=== PATIENT | male | born 1970 | race Caucasian/White ===

== ENCOUNTER 2020-08-15 10:45 | Inpatient (IN) | payer MEDICARE, MEDICAID ==
[~2020-08-15] VITALS: Ht 182.9 cm; Wt 115.0 kg
[2020-08-15 11:35] LABS: BASOPHILS % (AUTO) 0.5 % (0.0-2.0); EOSINOPHILS % (AUTO) 1.4 % (1.0-6.0); HEMATOCRIT 45.5 % (41-53); HEMOGLOBIN 16.1 g/dL (13.5-17.5); LYMPHOCYTES # (AUTO) 2.1 K/uL (1.0-4.8); LYMPHOCYTES % (AUTO) 24.8 % (22.0-44.0); MEAN CORPUSCULAR HEMOGLOBIN 32.6 pg (26.0-34.0); MEAN CORPUSCULAR HGB CONC 35.4 G/dL (31.0-37.0); MEAN CORPUSCULAR VOLUME 92 fL (80-100); MONOCYTES # (AUTO) 0.6 K/uL (0.1-1.0); MONOCYTES % (AUTO) 6.8 % (2.0-9.0); NEUTROPHILS # (AUTO) 5.5 K/uL (1.8-7.7); NEUTROPHILS % (AUTO) 66.5 % (40.0-70.0); PLATELET COUNT (AUTO) 183 K/uL (150-450); RED BLOOD CELL COUNT(AUTO) 4.94 MIL/uL (4.50-5.90); RED CELL DISTRIBUTION WIDTH 13.4 % (11.5-14.5)
[2020-08-15 11:42] LABS: AMPHET/METH SCREEN,URINE POSITIVE (NEGATIVE); BARBITURATE SCREEN, URINE NEGATIVE (NEGATIVE); BENZODIAZEPINES SCREEN,URINE NEGATIVE (NEGATIVE); CANNABINOID SCREEN,URINE NEGATIVE (NEGATIVE); COCAINE SCREEN,URINE NEGATIVE (NEGATIVE); METHADONE SCREEN, URINE NEGATIVE (NEGATIVE); OPIATE SCREEN,URINE NEGATIVE (NEGATIVE)
[2020-08-15 11:47] LABS: PHENCYCLIDINE SCREEN,URINE NEGATIVE (NEGATIVE)
[2020-08-15 11:51] LABS: ANION GAP 10 mmol/L (8-16); CALCIUM, TOTAL 8.7 mg/dL (8.8-10.5); CARBON DIOXIDE 26 mmol/L (22-29); CHLORIDE 105 mmol/L (98-107); CREATININE 1.54 mg/dL (0.60-1.30); GLOMERULAR FILTR. RATE CALC 48 mL/min (>60); GLUCOSE,RANDOM 112 mg/dL (70-110); POTASSIUM 3.2 mmol/L (3.5-5.1); SODIUM SERUM 141 mmol/L (136-145); UREA NITROGEN, BLOOD 21 mg/dL (7-18)
[2020-08-15 12:05] LABS: ALANINE AMINOTRANSFERASE 43 U/L (12-78); ALBUMIN 3.9 g/dL (3.4-5.0); ALKALINE PHOSPHATASE 92 U/L (46-116); ASPARTATE AMINOTRANSFERASE 22 U/L (15-37); BILIRUBIN,TOTAL 0.7 mg/dL (0.1-1.0); TOTAL PROTEIN, SERUM 7.1 g/dL (6.4-8.2)
[2020-08-15 12:37] LABS: COVID AG,FIA SOURCE NASOPHARYNGEAL
[2020-08-15] MEDS ORDERED: POTASSIUM CHLORIDE 20 MEQ ER TABLET PO ONE (14:00)
[2020-08-15] MEDS ORDERED: NICOTINE 21 MG/24 HOUR PATCH TD ONE (14:15)
[2020-08-15] MEDS ORDERED: TUBERCULIN, PURIFIED PROTEIN DERIVATIVE 5 TU/0.1 ML SYRINGE ID ONE (15:30)
[2020-08-15] MEDS ORDERED: LORazepam 2 MG TABLET PO PRN (15:30)
[2020-08-15] MEDS ORDERED: LOPERAMIDE HCL 2 MG CAPSULE PO PRN (15:30)
[2020-08-15] MEDS ORDERED: OLANZapine 5 MG RAPDIS TABLET PO PRN (15:30)
[2020-08-15] MEDS ORDERED: MAGNESIUM HYDROXIDE SUSPENSION 30 ML UDCUP PO PRN (15:30)
[2020-08-15] MEDS ORDERED: GuaiFENesin/D-METHORPHAN [SUGAR-FREE] 200-20MG/10 ML SYRUP UDCUP PO PRN (15:30)
[2020-08-15] MEDS ORDERED: HydrOXYzine PAMOATE 50 MG CAPSULE PO PRN (15:30)
[2020-08-15] MEDS ORDERED: ACETAMINOPHEN 325 MG TABLET PO PRN (15:30)
[2020-08-15] MEDS ORDERED: PROMETHAZINE HCL 25 MG TABLET PO PRN (15:30)
[2020-08-15] MEDS ORDERED: ZOLPIDEM TARTRATE 10 MG TABLET PO PRN (15:30)
[2020-08-15] MEDS ORDERED: MAG HYDROX/AL HYDROX/SIMETH ES 30 ML SUSPENSION UDCUP PO PRN (15:30)
[2020-08-15] MEDS: OLANZapine 5 MG RAPDIS TABLET PO SCH (21:17)
[2020-08-15] MEDS: THIAMINE 100 MG TABLET PO SCH (21:17)
[2020-08-15] MEDS: DIVALPROEX SODIUM 500 MG ER TABLET PO SCH (21:17)
[2020-08-15 21:29] VITALS: BP 166/90
[2020-08-15] MEDS ORDERED: INFLUENZA VIRUS VACCINE QVS 2020-21 (6MO+)/PF 60 MCG/0.5 ML SYRINGE IM ONE (22:00)
[2020-08-16 00:54] VITALS: BP 139/89
[2020-08-16 08:11] VITALS: BP 121/72
[2020-08-16 08:16] LABS: HEMOGLOBIN A1C 5.6 % (3.8-5.6)
[2020-08-16 08:30] LABS: CHOL/HDL RATIO 5.9 (4.2-7.3); FREE T4 (FREE THYROXINE) 1.22 ng/dL (0.76-1.46); THYROID STIMULATING HORMONE 1.06 uIU/mL (0.36-3.74)
[2020-08-16] MEDS: FOLIC ACID 1 MG TABLET PO SCH (09:00)
[2020-08-16] MEDS: NALTREXONE HCL 50 MG TABLET PO SCH (09:00)
[2020-08-16] MEDS: THIAMINE 100 MG TABLET PO SCH ×2 (09:00→16:37)
[2020-08-16] MEDS: OMEGA-3/DHA/EPA/FISH OIL 1,000 MG CAPSULE PO SCH (09:01)
[2020-08-16] MEDS: FLUoxetine HCL 20 MG CAPSULE PO SCH (09:01)
[2020-08-16] MEDS: NICOTINE 21 MG/24 HOUR PATCH TD SCH (09:01)
[2020-08-16] MEDS: MULTIVITAMINS WITH MINERALS, THERAPEUTIC TABLET PO SCH (09:01)
[2020-08-16] MEDS: ASPIRIN 81 MG CHEWABLE TABLET PO SCH (09:01)
[2020-08-16 16:09] VITALS: BP 138/80
[2020-08-16] MEDS ORDERED: POTASSIUM CHLORIDE 20 MEQ ER TABLET PO ONE (18:30)
[2020-08-16] MEDS: OLANZapine 5 MG RAPDIS TABLET PO SCH (20:41)
[2020-08-16] MEDS: DIVALPROEX SODIUM 500 MG ER TABLET PO SCH (20:41)
[2020-08-17 05:28] VITALS: BP 128/89
[2020-08-17 08:28] VITALS: BP 130/70
[2020-08-17] MEDS: NICOTINE 21 MG/24 HOUR PATCH TD SCH (08:28)
[2020-08-17] MEDS: THIAMINE 100 MG TABLET PO SCH ×2 (08:28→17:09)
[2020-08-17] MEDS: FLUoxetine HCL 20 MG CAPSULE PO SCH (08:28)
[2020-08-17] MEDS: OMEGA-3/DHA/EPA/FISH OIL 1,000 MG CAPSULE PO SCH (08:28)
[2020-08-17] MEDS: MULTIVITAMINS WITH MINERALS, THERAPEUTIC TABLET PO SCH (08:28)
[2020-08-17] MEDS: FOLIC ACID 1 MG TABLET PO SCH (08:28)
[2020-08-17] MEDS: NALTREXONE HCL 50 MG TABLET PO SCH (08:28)
[2020-08-17] MEDS: ASPIRIN 81 MG CHEWABLE TABLET PO SCH (08:28)
[2020-08-17 08:33] LABS: ANION GAP 7 mmol/L (8-16); CALCIUM, TOTAL 8.4 mg/dL (8.8-10.5); CARBON DIOXIDE 27 mmol/L (22-29); CHLORIDE 107 mmol/L (98-107); GLOMERULAR FILTR. RATE CALC > 60 mL/min (>60); GLUCOSE,RANDOM 91 mg/dL (70-110); POTASSIUM 4.1 mmol/L (3.5-5.1); SODIUM SERUM 141 mmol/L (136-145); UREA NITROGEN, BLOOD 11 mg/dL (7-18); URIC ACID 8.4 mg/dL (2.6-7.2); VALPROIC ACID 52 mcg/mL (50-100)
[2020-08-17] MEDS ORDERED: OLAN5TAB30 PO (14:57)
[2020-08-17] MEDS ORDERED: DIVA-80 PO (14:57)
[2020-08-17] MEDS ORDERED: NALT50TA PO (14:57)
[2020-08-17] MEDS ORDERED: FLUO-191 PO (14:57)
[2020-08-17] MEDS ORDERED: OMEG-135 PO (14:57)
[2020-08-17 16:17] VITALS: BP 140/81
[2020-08-17] MEDS: DIVALPROEX SODIUM 500 MG ER TABLET PO SCH (20:35)
[2020-08-17] MEDS: OLANZapine 5 MG RAPDIS TABLET PO SCH (20:35)
[2020-08-18 05:04] VITALS: BP 137/95
[2020-08-18 08:23] VITALS: BP 142/89
[2020-08-18] MEDS ORDERED: ASPI81TA49 PO (08:23)
[2020-08-18] MEDS: OMEGA-3/DHA/EPA/FISH OIL 1,000 MG CAPSULE PO SCH (08:27)
[2020-08-18] MEDS: FLUoxetine HCL 20 MG CAPSULE PO SCH (08:27)
[2020-08-18] MEDS: NALTREXONE HCL 50 MG TABLET PO SCH (08:27)
[2020-08-18] MEDS: FOLIC ACID 1 MG TABLET PO SCH (08:27)
[2020-08-18] MEDS: MULTIVITAMINS WITH MINERALS, THERAPEUTIC TABLET PO SCH (08:27)
[2020-08-18] MEDS: NICOTINE 21 MG/24 HOUR PATCH TD SCH (08:28)
[2020-08-18] MEDS: THIAMINE 100 MG TABLET PO SCH (08:28)
[2020-08-18] MEDS ORDERED: ATOR10TA69 PO ×2 (11:18→11:24)
== END 2020-08-18 14:43 | disposition home or self-care (01) | DRG 885 ==
LOC: EMS 10:47 → B2X 15:21
PROVIDERS: ADMIT Psychiatry & Neurology Psychiatry; ATTEND Psychiatry & Neurology Psychiatry
DX: F31.30 Bipolar disorder, current episode depressed, mild or moderate severity, unspecified (principal); N18.9 Chronic kidney disease, unspecified; N17.9 Acute kidney failure, unspecified; F17.200 Nicotine dependence, unspecified, uncomplicated; I12.9 Hypertensive chronic kidney disease with stage 1 through stage 4 chronic kidney disease, or unspecified chronic kidney disease; E87.6 Hypokalemia; M10.9 Gout, unspecified; I25.10 Atherosclerotic heart disease of native coronary artery without angina pectoris; F10.10 Alcohol abuse, uncomplicated; F15.10 Other stimulant abuse, uncomplicated; Z28.21 Immunization not carried out because of patient refusal; Z03.818 Encounter for observation for suspected exposure to other biological agents ruled out
CPT/HCPCS: 80074; 83036; 84439; 84443; 84550; 86592; 87426; 90686; G0480